=== PATIENT | female | born 1955 | race Caucasian/White ===

== ENCOUNTER 2018-04-21 10:31 | Emergency (ER) | payer BC ==
[2018-04-21] MEDS: KETOROLAC 60 MG/2 ML VIAL (J1885) IM (11:18)
== END 2018-04-21 12:46 | disposition home or self-care (01) ==
LOC: M ED 10:31
DX: M54.5 Low back pain (principal); M51.9 Unspecified thoracic, thoracolumbar and lumbosacral intervertebral disc disorder; M85.88 Other specified disorders of bone density and structure, other site; I10 Essential (primary) hypertension; E78.00 Pure hypercholesterolemia, unspecified; F41.9 Anxiety disorder, unspecified; Z87.891 Personal history of nicotine dependence; Z79.899 Other long term (current) drug therapy
CPT/HCPCS: J1885